=== PATIENT | female | born 1975 | race Caucasian/White ===

== ENCOUNTER 2018-02-16 18:38 | Emergency (ER) | payer SELFPAY ==
[~2018-02-16] VITALS: Ht 167.6 cm; Wt 81.2 kg
[2018-02-16 18:55] VITALS: BP 104/53
[2018-02-16] MEDS ORDERED: BENZ100C PO (19:45)
--- NOTE | 2018-02-16 19:45 | PHYS DOC ---
Past Medical History Past Medical History: No Pertinent History Past Surgical History: No Surgical History Alcohol Use: None Drug Use: None Adult General Chief Complaint Chief Complaint: COUGH HPI HPI Patient is a 42 year old female who presents with who presents with a one-day history of right ear pain, productive cough with green mucus and sinus congestion. Patient states she does get cold and hot and has been taking NyQuil. Patient is afebrile in the ED today. Patient denies any shortness of air chest pain. Patient has no known drug allergies. Patient states that Robitussin-DM does not help with her cough. Review of Systems Review of Systems Constitutional: fever or chills [] Eyes: Denies change in visual acuity, redness, or eye pain [] HENT: Nasal congestion. Denies sore throat Left ear pain.[] Respiratory: Productive cough. Denies shortness of breath [] Cardiovascular: No additional information not addressed in HPI [] GI: Denies abdominal pain, nausea, vomiting, bloody stools or diarrhea [] : Denies dysuria or hematuria [] Musculoskeletal: Denies back pain or joint pain [] Integument: Denies rash or skin lesions [] Neurologic: Denies headache, focal weakness or sensory changes [] Endocrine: Denies polyuria or polydipsia [] All other systems were reviewed and found to be within normal limits, except as documented in this note. Current Medications Current Medications Current Medications Medications (Trade) Dose Ordered Sig/[facility] Start Time Stop Time Status Last Admin Dose Admin Dexamethasone Sodium Phosphate (Decadron) 8 mg 1X ONCE 02/16/18 20:00 02/16/18 20:01 DC Allergies Allergies Allergies Coded Allergies Type Severity Reaction Last Updated Verified No Known Drug Allergies 05/11/15 No Physical Exam Physical Exam Constitutional: Well developed, well nourished, no acute distress, non-toxic appearance. [] HENT: Normocephalic, atraumatic, bilateral external ears normal, oropharynx moist, no oral exudates, nose normal. Right ear tympanic is red.[] Eyes: PERRLA, EOMI, conjunctiva normal, no discharge. [] Neck: Normal range of motion, no tenderness, supple, no stridor. [] Cardiovascular:Heart rate regular rhythm, no murmur [] Lungs & Thorax: Right lung lobes have a expiratory wheeze to auscultation [] Abdomen: Bowel sounds normal, soft, no tenderness, no masses, no pulsatile masses. [] Skin: Warm, dry, no erythema, no rash. [] Back: No tenderness, no CVA tenderness. [] Extremities: No tenderness, no cyanosis, no clubbing, ROM intact, no edema. [] Neurologic: Alert and oriented X 3, normal motor function, normal sensory function, no focal deficits noted. [] Psychologic: Affect normal, judgement normal, mood normal. [] Current Patient Data Vital Signs Vital Signs Date Time Temp Pulse Resp B/P (MAP) Pulse Ox O2 Delivery O2 Flow Rate FiO2 02/16/18 18:55 98.2 57 16 97 Room Air 98.2 EKG EKG [] Radiology/Procedures Radiology/Procedures Chest x ray[] Impressions: No acute findings. Read by Dr Britton Course & Med Decision Making Course & Med Decision Making Upon examination patient has right lung lobe expiratory wheeze. Patient states that she's had a cough with green mucus production. Patient denies shortness of air. Patient states she has sinus drainage and congestion. Patient denies chest pain. Patient states that she has cold chills. Patient states she took NyQuil really early this morning. Patient bilateral tympanic membranes are white cloudy with examination. Patient received a shot of Decadron in the ED. Patient to be sent home with Kendrick Martinez to take ibuprofen for pain or fever. Patient to follow up with her primary care. Chest x ray showed no acute findings. Dragon Disclaimer Dragon Disclaimer This electronic medical record was generated, in whole or in part, using a voice recognition dictation system. Departure Departure Impression: Primary Impression: Upper respiratory infection Disposition: 01 HOME, SELF-CARE Condition: STABLE Referrals: NO PCP (PCP) Patient Instructions: Upper Respiratory Infection, Adult Additional Instructions: Take all medications as prescribed and follow up with her primary care physician Scripts Benzonatate (TESSALON PERLE) 100 Mg Capsule 100 MG PO TID PRN for COUGH, #30 CAP Prov: BAYRON ARANDA APRN 02/16/18 Problem Qualifiers Primary Impression: Upper respiratory infection URI type: unspecified URI Qualified Codes: J06.9 - Acute upper respiratory infection, unspecified BAYRON ARADNA RESCUE INSTRUCTOR Feb 16, 2018 19:45
[2018-02-16] MEDS ORDERED: DEXAMETHASONE SOD PHOS 20 MG/5 ML VIAL. IM ONE (20:00)
--- NOTE | 2018-02-17 09:17 | RAD ---
EXAM: PA and lateral views of the chest DATE: 02/16/2018 8:42 PM INDICATION: FEVER, COUGH COMPARISON: No Prior FINDINGS: The heart is not enlarged. Mediastinal and hilar contours are normal. No focal parenchymal airspace opacity. No pleural effusion or pneumothorax. IMPRESSION: 1. No radiographic evidence for acute cardiopulmonary process. Electronically signed by: Adolfo Cooper MD (02/17/2018 9:13 AM) [facility]
== END 2018-02-16 21:54 | disposition home or self-care (01) ==
LOC: ER 18:38
DX: J06.9 Acute upper respiratory infection, unspecified (principal); H92.01 Otalgia, right ear
CPT/HCPCS: 71046; 96372; 99284; J1100